=== PATIENT | female | born 1965 | race Caucasian/White ===

== ENCOUNTER 2019-08-15 16:24 | Emergency (ER) | payer MEDICARE, MEDICAID ==
[~2019-08-15] VITALS: Ht 160 cm; Wt 72.7 kg
[2019-08-15 16:34] VITALS: Ht 160 cm; Wt 72.7 kg
[2019-08-15] MEDS ORDERED: NORVASC5 MG PO (16:37)
[2019-08-15] MEDS ORDERED: LIPITOR20 MG PO (16:37)
[2019-08-15] MEDS ORDERED: PROTONIX40 MG PO (16:38)
[2019-08-15] MEDS ORDERED: NEURONTIN 300300 MG PO (16:39)
[2019-08-15] MEDS ORDERED: ZOFRAN4 MG PO (16:39)
[2019-08-15] MEDS ORDERED: AMBIEN5 MG PO (16:39)
[2019-08-15] MEDS ORDERED: INDERAL 40 MG T40 MG PO (16:39)
[2019-08-15] MEDS ORDERED: ACETAMINOPHEN500 M1 PO (17:02)
[2019-08-15] MEDS ORDERED: IBUPROFEN800 MG PO (17:02)
[2019-08-15] MEDS ORDERED: MEDROL DOSE PACK4 MG PO (17:02)
[2019-08-15 18:50] VITALS: BP 167/90
== END 2019-08-15 18:51 | disposition home or self-care (01) ==
LOC: D.ER 16:24
DX: S39.012A Strain of muscle, fascia and tendon of lower back, initial encounter (principal); M54.5 Low back pain; M54.30 Sciatica, unspecified side